=== PATIENT | born 1965 | race Caucasian/White ===

== ENCOUNTER 2025-07-09 07:54 | Outpatient (CLI) | payer BC, SELFPAY ==
--- NOTE | 2025-08-04 17:51 | P.SLEEP_ITS ---
Sleep Study - Home Unattended Date of Study: 07/09/25 Ordering Provider: Laurita Linton APRN Interpreting Provider: Lacey Comer, DO Home Sleep Study Type: Watch PAT Height: 1.63 m Weight: 83.915 kg Body Mass Index: 31.7 Neck Circumference (inches): 15.5 Manson: 10 Reason for Sleep Study Excessive daytime sleepiness Sleep History The patient is a 60-year-old female that had a sleep study ordered by her primary care for evaluation of sleep apnea. The patient denies awakening from sleep short of breath. She rarely awakens at night with heartburn, belching or cough. She occasionally snores but is rarely loud enough that others complain. She rarely has trouble sleeping when she has a cold. She denies waking up gasping for air throughout the night. She denies having breathing problems at night observed by herself or others. She denies sweating excessively at night. She denies having heart palpitations or irregular heartbeats during the night. She frequently falls asleep during the day but never while driving. She denies sleep paralysis and cataplexy. She occasionally has trouble at school or work due to sleepiness. She occasionally experiences vivid dreamlike scenes upon awakening or falling asleep. She denies feeling afraid of going to sleep. She denies having nightmares. She frequently remembers her dreams. She occasionally has thoughts racing through her mind. She rarely feels sad, depressed or anxious. She denies having muscular tension. She occasionally notices parts of her body jerk. She occasionally kicks during the night. She denies having crawling and aching feelings in her legs and denies having leg pain during the night. She rarely grinds her teeth during sleep but never awakens with morning jaw pain. She denies being bothered by pain during the day and denies being awakened by pain during the night. She denies waking up feeling stiff in the morning. She denies waking up with sore or achy muscles. She denies waking up with pain in the neck, spine and other joints. She goes to bed at 10:00 p.m. on weekdays and at 11:00 p.m. on the weekends. It takes her 10 minutes to fall asleep. She wakes up 3 times throughout the night to urinate or take out her dogs and she is able fall back asleep within a few minutes. She wakes up at 6:30 a.m. on weekdays and at 7:30 a.m. on the weekends. She typically gets 7-8 hours of sleep per night. She does not stay in bed after waking up in the morning. She currently lives with her and adult child. She will consume caffeinated beverages within 2 hours of bedtime. She denies engaging in physical exercise before bedtime. She will read and watch television before falling asleep. She will take naps in afternoon or the evening but they are not refreshing. She consumes 4 caffeinated beverages per day. She consumes 1 alcoholic beverage per week. She denies tobacco and recreational drug use. [facility] Past Medical History Medical History Depression Anxiety Surgical History Surgical History H/O arthroscopy of shoulder Family History Family History Mother Hypertension Cerebrovascular accident Father Diabetes mellitus Hypertension Heart problem Sibling Diabetes mellitus Heart problem Hypertension Skin cancer Grandparent Diabetes mellitus Breast cancer Social History Social History Smoking status: Former smoker Second hand tobacco smoke exposure: No Alcohol intake: current Alcohol use details: Rarely Substance use: never Lack of Transportation: No Lack of Food: Never True Current Housing: I Have Housing Concerned About Future Housing: No Difficulty Paying Gas/Electric Bills: No Difficulty Paying for Meds: No Currently Unemployed: Decline to Answer Education: Master's Degree or Higher Difficulty w/ Childcare or Family Care: No Living arrangements: with family Gender identity (if verbalized by the patient): Female Sexual Orientation (if Verbalized by the Patient): Straight or Heterosexual Agree to blood products: Yes Medications Home Medications ?Medication ?Instructions ?Recorded ?Confirmed ?Type bupropion HCl 150 mg tablet,12 hr 150 mg PO DAILY #60 tabs 07/30/25 07/30/25 Rx sustained-release (Wellbutrin SR) escitalopram oxalate 20 mg tablet 20 mg PO DAILY #60 t abs 07/30/25 07/30/25 Rx Sleep Procedure The sleep study was completed using 3[employer]af[employer] a technically adequate device with seven channels: peripheral arterial tone, actigraphy, body position, snore, respiratory movement, pulse oximetry, sleep staging, and heart rate. Prior to using the device, the patient received verbal and written instructions for its application and was provided with the help desk phone number for additional telephonic instruction with 24-hour availability of qualified personnel to answer questions. The study was scored using CMS guidelines. Sleep Architecture The total recording time is 12 hrs, 0 min. The total sleep time is 8 hrs, 58 min. Sleep latency is 22 minutes. REM latency is 73 minutes. The patient had 9 episodes of waking. Sleep architecture shows 19.5% deep sleep, 60.0% light sleep, and (as % Total Sleep Time) showed NREM (Light 60.0%; Deep 19.5%), and a 20.4% stage REM. The patient spent 9.1% of total sleep time in the supine posi tion. Sleep efficiency was 74.72. Respiratory Analysis The overall AHI (pAHI 4%:) is 0.9. The overall AHI (pAHI 3%:) is 1.5. The central AHI is 1.9. The AHI was 1.6 in NREM and 0.8 in REM sleep. The AHI was 6.1 in Supine and 3.3 in Non-supine sleep. Percent of [place] respirations is 0.0. Oximetry Data The oxygen desaturation index (WIN 4%:) is 2.1. The mean saturation is 94%, and the lowest saturation is 89%. Time spent with saturation < 88% is 0.0 minutes. Snoring Profile Snoring average intensity is 41 dB. The patient snored above 45 decibels for 73.3 minutes, 13.6% of sleep time. Cardiac Profile The average pulse rate is 61 beats per minutes. The lowest pulse rate is 47 bpm. The highest pulse rate reported is 103 bpm. Atrial fibrillation was not detected. Premature beats occur <0.1 per minute. Assessment and Plan Assessment and Plan (1) Hypersomnia: Code(s): G47.10 - Hypersomnia, unspecified Status: Acute Assessment and Plan: The patient had an overall AHI of 0.9 with desaturation down to 89%. This is not consistent with sleep-disordered breathing. If the patient used her mandibular appliance up until the night of the sleep study, this could have been a false negative. If there is further concern for a sleep disorder, I recommend that the patient have a split study with the use of a hypnotic to ensure we obtain enough sleep data. Data The data obtained during this sleep study is adequate for interpretation. Certification This sleep study has been reviewed by a board certified sleep medicine physician.
[2025-08-05 18:42] VITALS: BMI 31.7
== END 2025-07-10 13:15 | disposition home or self-care (01) ==
PROVIDERS: PCP Internal Medicine
DX: G47.10 Hypersomnia, unspecified (principal)
CPT/HCPCS: 95800